=== PATIENT | female | born 1945 | race Caucasian/White ===

== ENCOUNTER 2016-11-13 09:29 | Emergency (ER) | payer MEDICARE ==
[~2016-11-13] VITALS: Ht 170.2 cm; Wt 85.0 kg
[2016-11-13] MEDS ORDERED: RESTORIL15 MG PO (09:42)
[2016-11-13] MEDS ORDERED: LIPITOR10 M1 PO (09:43)
[2016-11-13] MEDS ORDERED: MELOXICAM15 MG PO (09:43)
[2016-11-13 11:02] LABS: HEMATOCRIT 48.1 % (37.0-47.0); HEMOGLOBIN 16.5 g/dl (12.0-16.0); IMMATURE GRANULOCYTES 0.4 % (0.0-1.0); MEAN CELL VOLUME 93.4 fL CALC (80.0-100.0); MEAN CORPUSCULAR HGB CONC 34.3 g/L CALC (32.0-36.0); NEUT# 11.44 thou/uL (2.00-7.15); RED BLOOD COUNT 5.15 mill/uL (4.20-5.60); RED CELL DISTRI WIDTH 12.8 % (11.5-15.5)
[2016-11-13 11:07] LABS: PROTHROMBIN TIME 10.7 SECONDS (9.0-12.5)
[2016-11-13 11:17] LABS: ALBUMIN 5.3 g/dL (3.2-5.0); ALKALINE PHOSPHATASE 123 u/l (38-126); AMYLASE 96 u/l (30-110); ANION GAP 19 (6-22 (CALC)); BILIRUBIN, TOTAL 0.8 mg/dL (0.0-1.4); BUN 13 mg/dL (8-23); BUN/CREATININE RATIO 15 (12-20 (CALC)); CALCIUM 10.3 mg/dL (8.4-10.2); CARBON DIOXIDE 24 mmol/l (22-30); CHLORIDE 97 mmol/l (95-108); CREATININE 0.9 mg/dL (0.5-1.0); GFR > 60 ML/MIN (>=60 (CALC)); GFR FOR AFR.AMER. > 60 ML/MIN (>=60 (CALC)); GLUCOSE 133 mg/dL (82-115); LIPASE 96 u/l (23-300); POTASSIUM 4.4 mmol/l (3.5-5.1); SGOT/AST 40 u/l (9-36); SGPT/ALT 28 u/l (11-66); SODIUM 136 mmol/l (137-146); TOTAL PROTEIN 8.9 g/dL (6.3-8.2)
[2016-11-13 12:24] LABS: C. DIFFICILE TOXIN A&B NEGATIVE (NEGATIVE)
[2016-11-13] MEDS ORDERED: METRONIDAZOL500 MG PO (13:41)
[2016-11-13] MEDS ORDERED: CIPROFLOXACN500 MG PO (13:41)
[2016-11-13] MEDS ORDERED: NORCO1 TA1 PO (13:41)
[2016-11-13 13:46] VITALS: BP 160/89
== END 2016-11-13 14:01 | disposition home or self-care (01) ==
LOC: ED 09:29
PROVIDERS: Emergency Medicine
DX: K52.9 Noninfective gastroenteritis and colitis, unspecified (principal); E78.00 Pure hypercholesterolemia, unspecified; K92.1 Melena
CPT/HCPCS: Q9967

== ENCOUNTER 2016-11-16 12:49 | Inpatient (IN) | payer MEDICARE ==
[~2016-11-16] VITALS: Ht 167.6 cm; Wt 74.8 kg
[~2016-11-16 12:49] MED LIST: CIPROFLOXACN500 MG PO; LIPITOR10 M1 PO; MELOXICAM15 MG PO; METRONIDAZOL500 MG PO; NORCO1 TA1 PO; RESTORIL15 MG PO
--- NOTE | 2016-11-16 13:30 | NUR ---
PT TO ROOM VIA WC ACCOMPANIED BY VOLUNTEER; AMBULATORY TO BED WITH STAND BY ASSIST; PT A/O X3; DENIES PAIN AT THIS TIME; PT STATES RECTAL BLEEDING AND STOMACH PAIN X4 DAYS; TELE MONITOR PLACE ON PT; ORIENTED TO ROOM AND CALL SYSTEM; CALL LEES WITHIN REACH; WILL CONTINUE TO MONITOR.
[2016-11-16 13:43] VITALS: BP 103/75
[2016-11-16 14:03] LABS: HEMATOCRIT 45.2 % (37.0-47.0); HEMOGLOBIN 15.8 g/dl (12.0-16.0); MEAN CORPUSCULAR HGB 32.5 pG CALC (26.0-32.0); RED BLOOD COUNT 4.86 mill/uL (4.20-5.60); RED CELL DISTRI WIDTH 12.8 % (11.5-15.5)
[2016-11-16 14:28] LABS: ALBUMIN 4.4 g/dL (3.2-5.0); ALKALINE PHOSPHATASE 94 u/l (38-126); ANION GAP 16 (6-22 (CALC)); BILIRUBIN, TOTAL 0.7 mg/dL (0.0-1.4); BUN 19 mg/dL (8-23); BUN/CREATININE RATIO 23 (12-20 (CALC)); CALCIUM 9.2 mg/dL (8.4-10.2); CARBON DIOXIDE 24 mmol/l (22-30); CHLORIDE 97 mmol/l (95-108); CREATININE 0.8 mg/dL (0.5-1.0); GFR > 60 ML/MIN (>=60 (CALC)); GFR FOR AFR.AMER. > 60 ML/MIN (>=60 (CALC)); GLUCOSE 95 mg/dL (82-115); POTASSIUM 3.9 mmol/l (3.5-5.1); SGOT/AST 29 u/l (9-36); SGPT/ALT 26 u/l (11-66); SODIUM 133 mmol/l (137-146); TOTAL PROTEIN 7.3 g/dL (6.3-8.2)
[2016-11-16 16:23] VITALS: BP 106/67
--- NOTE | 2016-11-16 17:10 | NUR ---
PT MEDICATED FOR C/O ABD CRAMPING 11/20; CALL LEES WITHIN REACH; WILL CONTINUE TO MONITOR.
[2016-11-16 19:30] VITALS: BP 113/67
--- NOTE | 2016-11-16 19:30 | NUR ---
PATIENT RESTING IN BED AT THIS TIME-AWAKE ALERT AND ORIENTEDX3. PATIENT WITH IV SITE TO LEFT AC WITH D5NS PATENT AND INFUSING AT 100CC/HR. SITE APPEARS HEALTHY AT THIS TIME. PATIENT IS NPO EXCEPT FOR ICE CHIPS AT THIS TIME. TELE MONITORING IN PLACE. PATIENT WITH NO COMPLAINTS AT THIS TIME. SAFETY PRECAUTIONS REINFORCED. CALL LIGHT IN REACH. WILL CONT TO MONITOR.
--- NOTE | 2016-11-16 22:10 | NUR ---
PATIENT RESTING IN BED. PATIENT MEDICATED FOR SLEEP WITH RESTORIL ORDERED. FLAGYL INFUSING ORDERED. NO COMPLAINTS AT THIS TIME. CALL LIGHT IN REACH. WILL CONT TO MONITOR.
[2016-11-16 23:38] VITALS: BP 118/70
--- NOTE | 2016-11-16 23:57 | NUR ---
PATIENT APPEARS SLEEPING AT THIS TIME RESTING ON HER SIDE WITH EYES CLOSED. CALL LIGHT IN REACH. WILL CONT TO MONITOR.
[2016-11-17 03:15] VITALS: BP 108/67
--- NOTE | 2016-11-17 04:25 | NUR ---
PATIENT ASSISTED UP TO THE BR TO VOID DARK JACQUELINE URINE. ASSISTED BACK TO BED. CIPRO INFUSING ORDRED. NO COMPLAINTS AT THIS TIME. CALL LIGHT IN REACH. WILL CONT TO MONITOR.
[2016-11-17 05:55] LABS: HEMATOCRIT 38.4 % (37.0-47.0); HEMOGLOBIN 13.5 g/dl (12.0-16.0); IMMATURE GRANULOCYTES 0.4 % (0.0-1.0); MEAN CELL VOLUME 92.5 fL CALC (80.0-100.0); MEAN CORPUSCULAR HGB 32.5 pG CALC (26.0-32.0); MEAN CORPUSCULAR HGB CONC 35.2 g/L CALC (32.0-36.0); NEUT# 5.2 thou/uL (2.00-7.15); RED BLOOD COUNT 4.15 mill/uL (4.20-5.60); RED CELL DISTRI WIDTH 12.6 % (11.5-15.5)
[2016-11-17 06:13] LABS: ANION GAP 12 (6-22 (CALC)); BUN 13 mg/dL (8-23); BUN/CREATININE RATIO 18 (12-20 (CALC)); CALCIUM 8.5 mg/dL (8.4-10.2); CARBON DIOXIDE 23 mmol/l (22-30); CHLORIDE 101 mmol/l (95-108); CREATININE 0.7 mg/dL (0.5-1.0); GFR > 60 ML/MIN (>=60 (CALC)); GFR FOR AFR.AMER. > 60 ML/MIN (>=60 (CALC)); GLUCOSE 125 mg/dL (82-115); POTASSIUM 3.6 mmol/l (3.5-5.1); SODIUM 133 mmol/l (137-146)
--- NOTE | 2016-11-17 07:20 | NUR ---
PT IN SUPINE POSITION; AROUSED EASILY TO VERBAL STIMULI; IVF INFUSING WELL; PT DENIES PAIN; TELE MONITOR IN PLACE; WILL CONTINUE TO MONITOR.
[2016-11-17 07:30] VITALS: BP 93/66
[2016-11-17 10:57] VITALS: BP 102/68
--- NOTE | 2016-11-17 12:00 | NUR ---
PT TOLERATING CLEAR LIQ DIET WELL
--- NOTE | 2016-11-17 13:00 | NUR ---
PT TO SHOWER; TOLERATED WELL;
[2016-11-17 14:50] VITALS: BP 106/59
--- NOTE | 2016-11-17 16:23 | NUR ---
PT MEDICATED FOR C/O ABD CRAMPING 11/20; TELE MONITOR IN PLACE; CALL LEES WITHIN REACH; WILL CONTINUE TO MONITOR.
--- NOTE | 2016-11-17 17:17 | NUR ---
BROWINING IN TO SEE PT
--- NOTE | 2016-11-17 22:08 | NUR ---
PT.ASSESSED,LUNGS ARE COURSE, PT.C/O SOB UPON AMBULATION, O2SAT 94% ON NC2L; PT.IN RECLINER AND DOES NOT WANT TO MOVE TO BED; PT.REPORTED BM MON.; ACTIVE BOWEL SOUNDS, LOCX3; BST AND CALL LIGHT W/IN REACH, PT.INSTRUCTED TO CALL FOR ASSISTANCE WHEN AMBULATING OR OTHER NEEDS ARISE
--- NOTE | 2016-11-17 22:13 | NUR ---
PT.MEDICATED ORDERS PROVIDE, PT.UPRIGHT IN BED WATCHING TV; DENIES ANY DISCOMFORT AT THIS TIME, REPORTED NORMAL APPEARING BM TONIGHT W/NO BLOOD; PT.CALL LIGHT W/IN REACH AND PT.INSTRUCTED TO CALL NEEDS ARISE
[2016-11-18 01:00] VITALS: BP 112/69
--- NOTE | 2016-11-18 01:55 | NUR ---
PT.SLEEPING, AROSE TO MY ENTERING ROOM, DENIES ANY NEEDS OR DISCOMFORT AT THIS TIME; WILL CONTINUE TO MONITOR; CALL LIGHT W/IN REACH
--- NOTE | 2016-11-18 04:05 | NUR ---
ANTIBIOTIC THERAPY ADMINISTERED, PT.AWOKE AND DENIED ANY DISCOMFORT OR NEEDS AT THIS TIME; WILL CONTINUE TO MONITOR, PT.INSTRUCTED TO CALL IF NEEDS ARISE
[2016-11-18 07:55] VITALS: BP 110/72
--- NOTE | 2016-11-18 07:55 | NUR ---
ASSESSMENT IS COMPLETED: IV SITE IS FREE FROM REDNESS OR EDEMA. TELE MONITOR IN PLACE/ CONTINUE TO OSBERVE AND MONITOR. PHYSICAL THERAPY CALLED AT 0830 INFORMED THAT HER OUT PT ARRIVED WILL CHECK ON THE PT LATER
[2016-11-18 11:10] VITALS: BP 118/80
--- NOTE | 2016-11-18 12:30 | NUR ---
pt is relaxing in bed with no distress noted. iv site is free from redness or edema. continue to osbeve and monitor.
[2016-11-18] MEDS ORDERED: FLORASTOR250 M1 PO (13:39)
[2016-11-18] MEDS ORDERED: CIPROFLOXACN500 MG PO (13:39)
[2016-11-18] MEDS ORDERED: METRONIDAZOL500 MG PO (13:39)
[2016-11-18] MEDS ORDERED: NORCO1 TA1 PO (13:39)
--- NOTE | 2016-11-18 14:38 | NUR ---
PT LEFT WITH AUXILLARY AND FAMILY DISCHARGE INSTRUCTIONS GIVEN AND IV SITE AND TELE MONITOR DISCONTINUED CATHETER INTACT. CONTINUE TO OSBERVE AND MONITOR.
== END 2016-11-18 14:35 | disposition home or self-care (01) | DRG 386 ==
LOC: ENPENDDIS → MS2 12:49
PROVIDERS: ADMIT Internal Medicine; ATTEND Internal Medicine
DX: K50.10 Crohn's disease of large intestine without complications (principal); K55.9 Vascular disorder of intestine, unspecified; A09 Infectious gastroenteritis and colitis, unspecified; E78.5 Hyperlipidemia, unspecified; M19.90 Unspecified osteoarthritis, unspecified site

== ENCOUNTER 2017-02-16 07:31 | Day surgery (SDC) | payer MEDICARE ==
[~2017-02-16] VITALS: Ht 167.6 cm; Wt 69.9 kg
[~2017-02-16 07:31] MED LIST changes: +FLORASTOR250 M1 PO
[2017-02-16 09:06] VITALS: BP 98/61
== END 2017-02-16 09:25 | disposition home or self-care (01) ==
LOC: ENDO 07:31 → ORM 09:15 → ENDO 09:15
PROVIDERS: ATTEND Surgery
PROC: 0DJ08ZZ Inspection of Upper Intestinal Tract, Via Natural or Artificial Opening Endoscopic (ICD-10-PCS; principal; 2017-02-16)
PROC: 0DJD8ZZ Inspection of Lower Intestinal Tract, Via Natural or Artificial Opening Endoscopic (ICD-10-PCS; 2017-02-16)
DX: R10.13 Epigastric pain (principal); K52.9 Noninfective gastroenteritis and colitis, unspecified; K29.70 Gastritis, unspecified, without bleeding; E78.5 Hyperlipidemia, unspecified; M19.90 Unspecified osteoarthritis, unspecified site; F51.01 Primary insomnia

== ENCOUNTER 2017-06-29 07:44 | Day surgery (SDC) | payer MEDICARE ==
[~2017-06-29 07:44] MED LIST changes: +AMITRIPTYLIN25 MG PO; +CYANOCOBALAM IM; +MAGNESIUM500 M3 PO; +PRAVASTATIN10 MG PO; +TIZANIDINE HCL2 MG PO; +TRAMADOL HCL50 MG PO
[2017-06-29] MEDS ORDERED: PERCOCET 5/325M1 TAB PO (11:14)
[2017-06-29 11:43] VITALS: BP 144/78
== END 2017-06-29 11:50 | disposition home or self-care (01) ==
LOC: ORM 07:44
PROVIDERS: ATTEND Surgery
PROC: 0YU50JZ Supplement Right Inguinal Region with Synthetic Substitute, Open Approach (ICD-10-PCS; principal; 2017-06-29)
DX: K40.90 Unilateral inguinal hernia, without obstruction or gangrene, not specified as recurrent (principal); E78.5 Hyperlipidemia, unspecified; M19.90 Unspecified osteoarthritis, unspecified site
CPT/HCPCS: C9290